=== PATIENT | male | born 1990 | race Caucasian/White ===

== ENCOUNTER 2016-12-19 08:24 | Emergency (ER) | payer OTHER ==
[~2016-12-19 08:24] MED LIST: IBUPROFEN PO
== END 2016-12-19 12:59 | disposition home or self-care (01) ==
LOC: CED 08:24
DX: T40.1X1A Poisoning by heroin, accidental (unintentional), initial encounter (principal); B19.20 Unspecified viral hepatitis C without hepatic coma; F17.210 Nicotine dependence, cigarettes, uncomplicated
CPT/HCPCS: 99283

== ENCOUNTER 2017-02-15 10:47 | Emergency (ER) | payer OTHER ==
--- NOTE | ~2017-02-15 | EKG ---
PATIENT: ALIA KHANNA UNIT #: [id number] Ventricular Rate: 136 BPM Atrial Rate: 136 BPM P-R Interval: 126 ms QRS Duration: 66 ms Q-T Interval: 304 ms QTC Calculation(Bezet): 457 ms P Hoffman: 57 degrees Calculated R Hoffman: 34 degrees Calculated T Hoffman: 21 degrees Diagnosis Line: Sinus tachycardia Diagnosis Line: Otherwise normal ECG Diagnosis Line: No previous ECGs available Diagnosis Line: Confirmed by YURI HINTON MD ([id number]) on 02/16/2017 Diagnosis Line: 10:01:55 AM INTERPRETING MD: JAMAAL MARTINEZ
== END 2017-02-15 11:47 | disposition home or self-care (01) ==
LOC: CED 10:47
DX: F11.10 Opioid abuse, uncomplicated (principal); F17.200 Nicotine dependence, unspecified, uncomplicated
CPT/HCPCS: 93005; 96374; 99283

== ENCOUNTER 2017-04-14 04:24 | Emergency (ER) | payer OTHER ==
[2017-04-14 06:08] LABS: BUN/CREATININE RATIO 17.77; CALCIUM SERUM 8.8 mg/dL (8.4-10.2); CREATININE SERUM 0.9 mg/dL (0.6-1.4); GLOM FILT RATE Estimated 118.3 mL/min (>60); POTASSIUM 3.4 mmol/L (3.5-5.1)
== END 2017-04-14 06:35 | disposition home or self-care (01) ==
LOC: CED 04:24
PROVIDERS: Nurse Practitioner Family
DX: F11.10 Opioid abuse, uncomplicated (principal); F15.10 Other stimulant abuse, uncomplicated; F17.210 Nicotine dependence, cigarettes, uncomplicated
CPT/HCPCS: 36415; 80048; 96360; 99283